=== PATIENT | female | born 1980 | race Caucasian/White ===

== ENCOUNTER 2016-12-22 10:38 | Emergency (ER) | payer MEDICAID ==
[2016-12-22 10:49] VITALS: RESP 18
[2016-12-22] MEDS ORDERED: SODIUM CHLORIDE 0.9% 1,000 ML IV STA (11:02)
[2016-12-22] MEDS ORDERED: ONDANSETRON 4 MG/2 ML VIAL IVP STA (11:02)
[2016-12-22] MEDS ORDERED: RX INFO: IV CONTRAST WAS GIVEN 1 EACH MISC MISCELLANE PRN (11:02)
[2016-12-22 11:19] LABS: Basophils % (A) 0 %; CH 32.3; CHCM 33.2; Eosinophils # (A) 0.1 k/uL (0-0.7); Eosinophils % (A) 2 %; HCT 49.5 % (34.0-46.0); HDW 2.26; HGB 15.5 gm/dL (11.4-16.0); Luc # (Auto) 0.08; Luc % (Auto) 1; Lymphocytes # (A) 1.3 k/uL (1.0-4.8); Lymphocytes % (A) 18 %; MCH 30.7 pg (25.0-35.0); MCHC 31.4 g/dL (31.0-37.0); MCV 97.9 fL (80.0-100.0); Mean Platelet Volume 9.3; Monocytes # (A) 0.3 k/uL (0-1.0); Monocytes % (A) 5 %; Neutrophils # (A) 5.7 k/uL (1.3-7.7); Neutrophils % (A) 75 %; RBC 5.05 m/uL (3.80-5.40); RDW 13.8 % (11.5-15.5); WBC 7.6 k/uL (3.8-10.6); WBC (Perox) 7.45
--- NOTE | 2016-12-22 11:21 | ED ---
General Adult HPI - General Chief complaint: Abdominal Pain Stated complaint: Abd Pain Time Seen by Provider: 12/22/16 10:50 Source: patient, RN notes reviewed Mode of arrival: ambulatory Limitations: no limitations - History of Present Illness Initial comments: 36-year-old female presents to the emergency department with a chief complaint of right lower quadrant abdominal pain. Patient states that she should a little bit of pain and today the pain was worse. with nausea without vomiting. No fever or chills. She states she just continues to be this constant type pain so she was concerned. She does admit to history of as well as ovarian cysts. Denies any other surgeries on the abdomen. Patient was concerned due to her continued discomfort so she thought that she should be evaluated. Patient denies any recent fever, chills, shortness of breath, chest pain, back pain, vomiting, numbness or tingling, dysuria or hematuria, constipation or diarrhea, headaches or visual changes, or any other current symptoms. - Related Data Home Medications Medication Instructions Recorded Confirmed Mirena 1 implant VAGINAL [id number] 12/22/16 12/22/16 Allergies Allergy/AdvReac Type Severity Reaction Status Date / Time No Known Allergies Allergy Verified 12/22/16 11:06 Review of Systems ROS Statement: Those systems with pertinent positive or pertinent negative responses have been documented in the HPI. ROS Other: All systems not noted in ROS Statement are negative. Past Medical History Past Medical History: No Reported History History of Any Multi-Drug Resistant Organisms: None Reported Past Surgical History: Section Past Psychological History: No Psychological Hx Reported Smoking Status: Never smoker Past Alcohol Use History: Occasional Past Drug Use History: None Reported General Exam - General Exam Comments Initial Comments: General: The patient is awake and alert, in no distress, and does not appear acutely ill. Eye: Pupils are equal, round and reactive to light, extra-ocular movements are intact; there is normal conjunctiva bilaterally. No signs of icterus. Ears, nose, mouth and throat: There are moist mucous membranes and no oral lesions. Neck: The neck is supple, there is no tenderness. Cardiovascular: There is a regular rate and rhythm. No murmur, rub or gallop is appreciated. Respiratory: Lungs are clear to auscultation, respirations are non-labored, breath sounds are equal. No wheezes, stridor, rales, or rhonchi. Gastrointestinal: Soft, non-distended, minimal right lower quadrant tenderness of the abdomen without masses or organomegaly noted. There is no rebound or guarding present. No CVA tenderness. Bowel sounds are unremarkable. Back: There is no tenderness to palpation in the midline. There is no obvious deformity. No rashes noted. Musculoskeletal: Normal ROM, no tenderness, There is no pedal edema. There is no calf tenderness or swelling. Sensation intact. Pulses equal bilaterally 2+. Neurological: CN II-XII intact, There are no obvious motor or sensory deficits. Coordination appears grossly intact. Speech is normal. Skin: Skin is warm and dry and no rashes or lesions are noted. Psychiatric: Cooperative, appropriate mood & affect, normal judgment. Limitations: no limitations Course Vital Signs 12/22/16 12/22/16 10:47 12:10 Temperature 98.8 F 97.6 F Pulse Rate 97 90 Respiratory 18 18 Rate Blood Pressure 143/83 114/59 O2 Sat by Pulse 97 99 Oximetry Medical Decision Making - Medical Decision Making 36-year-old female presents to the emergency department with a chief complaint of right lower quadrant abdominal pain. At this time patient's CAT scan has been reviewed. We did discuss the results thoroughly. We discussed that she needs to follow-up with the urologist for this. We did discuss that she needs to look in due to the continued results. We discussed that she does have ovarian cyst as well as a discussed return parameters all questions. She stated she understood and she is in agreement plan. She'll be discharged home. - Lab Data Result diagrams: 12/22/16 11:00 12/22/16 11:00 Lab Results 12/22/16 12/22/16 12/22/16 Range/Units 11:00 11:00 11:00 WBC 7.6 (3.8-10.6) k/uL RBC 5.05 (3.80-5.40) m/uL Hgb 15.5 (11.4-16.0) gm/dL Hct 49.5 H (34.0-46.0) % MCV 97.9 (80.0-100.0) fL MCH 30.7 (25.0-35.0) pg MCHC 31.4 (31.0-37.0) g/dL RDW 13.8 (11.5-15.5) % Plt Count 189 (150-450) k/uL Neutrophils % 75 % Lymphocytes % 18 % Monocytes % 5 % Eosinophils % 2 % Basophils % 0 % Neutrophils # 5.7 (1.3-7.7) k/uL Lymphocytes # 1.3 (1.0-4.8) k/uL Monocytes # 0.3 (0-1.0) k/uL Eosinophils # 0.1 (0-0.7) k/uL Basophils # 0.0 (0-0.2) k/uL Sodium 142 (137-145) mmol/L Potassium 3.9 (3.5-5.1) mmol/L Chloride 107 (98-107) mmol/L Carbon Dioxide 24 (22-30) mmol/L Anion Gap 11 mmol/L BUN 14 (7-17) mg/dL Creatinine 0.80 (0.52-1.04) mg/dL Est GFR (MDRD) Af Amer >60 (>60 ml/min/1.73 sqM) Est GFR (MDRD) Non-Af >60 (>60 ml/min/1.73 sqM) Glucose 91 (74-99) mg/dL Calcium 9.5 (8.4-10.2) mg/dL Total Bilirubin 0.6 (0.2-1.3) mg/dL AST 19 (14-36) U/L ALT 29 (9-52) U/L Alkaline Phosphatase 50 (38-126) U/L Total Protein 7.9 (6.3-8.2) g/dL Albumin 4.7 (3.5-5.0) g/dL Amylase 51 (30-110) U/L Lipase 114 (23-300) U/L Urine Color Urine Appearance (Clear) Urine pH (5.0-8.0) Ur Specific [facility] (1.001-1.035) Urine Protein (Negative) Urine Glucose (UA) (Negative) Urine Ketones (Negative) Urine Blood (Negative) Urine Nitrite (Negative) Urine Bilirubin (Negative) Urine Urobilinogen (<2.0) mg/dL Ur Leukocyte Esterase (Negative) Urine HCG, Qual Not Detected (Not Detectd) 12/22/16 Range/Units 11:00 WBC (3.8-10.6) k/uL RBC (3.80-5.40) m/uL Hgb (11.4-16.0) gm/dL Hct (34.0-46.0) % MCV (80.0-100.0) fL MCH (25.0-35.0) pg MCHC (31.0-37.0) g/dL RDW (11.5-15.5) % Plt Count (150-450) k/uL Neutrophils % % Lymphocytes % % Monocytes % % Eosinophils % % Basophils % % Neutrophils # (1.3-7.7) k/uL Lymphocytes # (1.0-4.8) k/uL Monocytes # (0-1.0) k/uL Eosinophils # (0-0.7) k/uL Basophils # (0-0.2) k/uL Sodium (137-145) mmol/L Potassium (3.5-5.1) mmol/L Chloride (98-107) mmol/L Carbon Dioxide (22-30) mmol/L Anion Gap mmol/L BUN (7-17) mg/dL Creatinine (0.52-1.04) mg/dL Est GFR (MDRD) Af Amer (>60 ml/min/1.73 sqM) Est GFR (MDRD) Non-Af (>60 ml/min/1.73 sqM) Glucose (74-99) mg/dL Calcium (8.4-10.2) mg/dL Total Bilirubin (0.2-1.3) mg/dL AST (14-36) U/L ALT (9-52) U/L Alkaline Phosphatase (38-126) U/L Total Protein (6.3-8.2) g/dL Albumin (3.5-5.0) g/dL Amylase (30-110) U/L Lipase (23-300) U/L Urine Color Light Yellow Urine Appearance Clear (Clear) Urine pH 6.5 (5.0-8.0) Ur Specific [facility] 1.007 (1.001-1.035) Urine Protein Negative (Negative) Urine Glucose (UA) Negative (Negative) Urine Ketones Negative (Negative) Urine Blood Negative (Negative) Urine Nitrite Negative (Negative) Urine Bilirubin Negative (Negative) Urine Urobilinogen <2.0 (<2.0) mg/dL Ur Leukocyte Esterase Negative (Negative) Urine HCG, Qual (Not Detectd) - Radiology Data Radiology results: report reviewed, image reviewed Disposition Clinical Impression: Ovarian cyst, Abdominal pain, Abnormal CT scan, kidney Disposition: HOME SELF-CARE Condition: Stable Instructions: Abdominal Pain (ED) Additional Instructions: Please use medication as discussed. Please follow up with family doctor if symptoms have not improved over the next two days. Please return to the emergency room if your symptoms increase or worsen or for any other concerns. Referrals: Milena Aragon DO [Primary Care Provider] - 1-2 days Delano Mireles MD [STAFF PHYSICIAN] - 1-2 days Time of Disposition: 12:37
[2016-12-22 11:22] LABS: Appearance,Urine Clear (Clear); Bilirubin,Urine Negative (Negative); Glucose,Urine (UA) Negative (Negative); Ketones,Urine Negative (Negative); Leukocyte Esterase,Urine Negative (Negative); Nitrite,Urine Negative (Negative); PH, Urine 6.5 (5.0-8.0); Protein,Urine Negative (Negative); Specific Gravity,Urine 1.007 (1.001-1.035); UA Billing (MACRO vs. MICRO) CHEM; Urobilinogen,Urine <2.0 mg/dL (<2.0)
[2016-12-22 11:27] LABS: ALT 29 U/L (9-52); AST 19 U/L (14-36); Alkaline Phosphatase 50 U/L (38-126); Amylase 51 U/L (30-110); Anion Gap 11 mmol/L; Blood Urea Nitrogen 14 mg/dL (7-17); Calcium 9.5 mg/dL (8.4-10.2); Carbon Dioxide 24 mmol/L (22-30); Chloride 107 mmol/L (98-107); Glucose 91 mg/dL (74-99); Non-African American GFR(MDRD) >60 (>60 ml/min/1.73 sqM); Potassium 3.9 mmol/L (3.5-5.1); Sodium 142 mmol/L (137-145); Total Bilirubin 0.6 mg/dL (0.2-1.3); Total Protein 7.9 g/dL (6.3-8.2)
--- NOTE | 2016-12-22 12:18 | CT ---
EXAMINATION TYPE: CT abdomen pelvis w con DATE OF EXAM: 12/22/2016 COMPARISON: NONE HISTORY: Patient complains of RLQ pain. CT DLP: 728.3 mGycm CONTRAST: CT scan of the abdomen and pelvis is performed without Oral Contrast and with IV Contrast, patient in jected with 100 mL of Omnipaque 300. FINDINGS: LUNG BASES-: No visible nodule. No infiltrate. LIVER/GB: No calcified gallstones. No space occupying hepatic lesion. Biliary tree is of normal ca liber. PANCREAS: No inflammation. No distinct mass. SPLEEN: No splenic enlargement. No lesion seen. ADRENALS: No nodule. No thickening. KIDNEYS/BLADDER: Diminutive right kidney relative to its left-sided counterpart with areas of parench ymal scarring. Right kidney measures 9 cm in length while the left kidney measures 13.7 cm. Approxima tely 5 nonobstructing calculi are seen within the right kidney. There is fullness of the right renal collecting system without obstructing calculus at this time. No renal masses. No left-sided nephrolit hiasis. Urinary bladder is unremarkable. BOWEL: Normal appendix. Normal bowel caliber. No inflammation. GENITAL ORGANS: IUD is in place. Bilateral renal cysts noted measuring 2.6 cm on the left and approx imately 2.9 cm on the right. No evidence for free fluid LYMPH NODES: No greater than 1cm abdominal or pelvic lymph nodes are appreciated. AORTA: No significant abnormality. OSSEOUS STRUCTURES: No significant abnormality is seen. OTHER: No significant additional abnormality is seen. IMPRESSION: 1. Diminutive right kidney with areas of parenchymal scarring. Nonobstructing nephrolithiasis. Fullne ss of the right renal collecting system without obstructing calculus. 2. Normal appendix. 3. Bilateral ovarian cysts.
[2016-12-22 12:49] VITALS: BP 135/75; PULSE 68; TEMP 98.5
== END 2016-12-22 12:49 | disposition home or self-care (01) ==
LOC: EC 10:38
DX: N83.202 Unspecified ovarian cyst, left side (principal); N83.201 Unspecified ovarian cyst, right side; R93.3 Abnormal findings on diagnostic imaging of other parts of digestive tract; Z97.5 Presence of (intrauterine) contraceptive device
CPT/HCPCS: 99284; 96374; 96361 ×2; 36415; 80053; 82150; 83690; 85025; 81003; 81025; 74177; J2405; Q9967

== ENCOUNTER → 2023-01-15 | Outpatient (CLI) | payer MEDICAID ==
[2023-01-15 10:52] LABS: Basophils # (A) 0.03 X 10*3/uL (0.00-0.10); Basophils % (A) 0.5 %; Eosinophils # (A) 0.06 X 10*3/uL (0.04-0.35); HCT 45.4 % (37.2-46.3); HGB 14.7 g/dL (12.0-15.0); Lymphocytes # (A) 1.21 X 10*3/uL (0.90-5.00); Lymphocytes % (A) 21.2 %; MCH 29.9 pg (27.0-32.0); MCHC 32.4 g/dL (32.0-37.0); MCV 92.5 FL (80.0-97.0); Mean Platelet Volume 11.1 FL (9.5-12.2); Monocytes # (A) 0.46 X 10*3/uL (0.20-1.00); NRBC Per 100 WBC 0 X 10*3/uL (0.00-0.01); Neutrophils # (A) 3.94 X 10*3/uL (1.80-7.70); Platelet Count 198 X 10*3/uL (140-440); RBC 4.91 X 10*6/uL (4.10-5.20); RDW 13.2 % (11.5-14.5); WBC 5.72 X 10*3/uL (4.50-10.00)
[2023-01-15 16:20] LABS: ALT 17 U/L (8-44); AST 12 U/L (13-35); Albumin 4.3 g/dL (3.8-4.9); Albumin/Globulin Ratio 1.95 Ratio (1.60-3.17); Alkaline Phosphatase 49 U/L (41-126); Blood Urea Nitrogen 10.4 mg/dL (9.0-27.0); Calcium 9.6 mg/dL (8.7-10.3); Chloride 108 mmol/L (96-109); Chol/HDL Ratio 2.94 Ratio; Globulin 2.2 g/dL (1.6-3.3); Glucose 101 mg/dL (70-110); LDL Cholesterol,Calculated 107.3 mg/dL (0.0-131.0); Potassium 4.9 mmol/L (3.5-5.5); Sodium 143 mmol/L (135-145); Total Bilirubin 0.4 mg/dL (0.3-1.2); Total Protein 6.5 g/dL (6.2-8.2)
[2023-01-15 17:06] LABS: Gliadin AB IgA, Deaminated Negative (Negative); Gliadin AB IgA, Unit 9.2 U/mL; Gliadin AB IgG, Deaminated Negative (Negative); Gliadin AB IgG, Unit <0.4 U/mL
== END | disposition home or self-care (01) ==
LOC: LABWHC1 06:57
PROVIDERS: ATTEND Family Medicine
DX: Z00.00 Encounter for general adult medical examination without abnormal findings (principal); Z13.1 Encounter for screening for diabetes mellitus; K58.9 Irritable bowel syndrome, unspecified
CPT/HCPCS: 36415; 80053; 80061; 82306; 83036; 83516; 84443; 85025

== ENCOUNTER 2023-01-20 07:06 | Observation (INO) | payer MEDICAID ==
[2023-01-20 07:30] VITALS: RESP 18
--- NOTE | 2023-01-20 07:56 | ED ---
General Adult HPI - General Chief complaint: Chest Pain Stated complaint: Afib Time Seen by Provider: 01/20/23 07:09 Source: EMS Mode of arrival: EMS Limitations: no limitations - History of Present Illness Initial comments: Dictation was produced using [employer] dictation software. please excuse any grammatical, word or spelling errors. Chief Complaint: 42-year-old female presents to the emergency department for palpitations History of Present Illness: 42-year-old female presents emergency. Palpitations. She states that she has extensive family history of A. fib. She denies any medical Prilosec does not take any supplements or stimulants. Patient is admitted. Patient states that her heart felt like it is racing last night for approximate 1 hour. She got to work and felt like her heart rate was a little fast. Denies any shortness of breath. No chest pain no hemoptysis no leg pain or swelling. No history of blood clots. The ROS documented in this emergency department record has been reviewed and confirmed by me. Those systems with pertinent positive or negative responses have been documented in the HPI. All other systems are other negative and/or noncontributory. - Related Data Home Medications Medication Instructions Recorded Confirmed Mirena 1 implant VAGINAL [id number] 12/22/16 12/22/16 Allergies Allergy/AdvReac Type Severity Reaction Status Date / Time No Known Allergies Allergy Verified 01/20/23 07:29 Review of Systems ROS Statement: Those systems with pertinent positive or pertinent negative responses have been documented in the HPI. ROS Other: All systems not noted in ROS Statement are negative. Past Medical History Past Medical History: No Reported History History of Any Multi-Drug Resistant Organisms: None Reported Past Surgical History: Section Past Psychological History: No Psychological Hx Reported Smoking Status: Never smoker Past Alcohol Use History: Occasional Past Drug Use History: None Reported General Exam - General Exam Comments Initial Comments: PHYSICAL EXAM: General Impression: Alert and oriented x3, not in acute distress HEENT: Normocephalic atraumatic, extra-ocular movements intact, pupils equal and reactive to light bilaterally, mucous membranes moist. Cardiovascular: Heart regular rate and rhythm Chest: Able to complete full sentences, no retractions, no tachypnea Abdomen: abdomen soft, non-tender, non-distended, no organomegaly Musculoskeletal: Pulses present and equal in all extremities, no peripheral edema Motor: no focal deficits noted Neurological: CN II-XII grossly intact, no focal motor or sensory deficits noted Skin: Intact with no visualized rashes Psych: Normal affect and mood Limitations: no limitations Course Vital Signs 01/20/23 01/20/23 07:25 10:12 Temperature 98.2 F Pulse Rate 117 H 103 H Respiratory 18 18 Rate Blood Pressure 155/85 150/78 O2 Sat by Pulse 97 99 Oximetry Medical Decision Making - Medical Decision Making Was pt. sent in by a medical professional or institution (, PA, MARBLE HELPER, urgent care, hospital, or retirement...) When possible be specific @ -No Did you speak to anyone other than the patient for history (EMS, parent, family, police, friend...)? What history was obtained from this source @ -No Did you review nursing and triage notes (agree or disagree)? Why? @ -I reviewed and agree with nursing and triage notes Were old charts reviewed (outside hosp., previous admission, EMS record, old EKG, old radiological studies, urgent care reports/EKG's, retirement records)? Report findings @ -No old charts were reviewed Differential Diagnosis (chest pain, altered mental status, abdominal pain women, abdominal pain men, vaginal bleeding, musculoskeletal, weakness, fever, dyspnea, syncope, headache, dizziness, GI bleed, back pain, seizure, CVA, palpatations, mental health)? @ - Differential Palpitations: Ventricular arrhythmias, atrial arrhythmias, myocardial infarction, anemia, thyrotoxicosis, electrolyte imbalance, hypokalemia, pulmonary embolism, pulmonary disease, drugs, alcohol, anxiety, stress.... This is not meant to be an all-inclusive list. EKG interpreted by me (3pts min.). @ -IMy EKG interpretation: Ventricular rate 99, sinus rhythm,. 122, QRS 86, QTC 400. No IL prolongation, no QTC prolongation. vague ST depressions diffusely no ST elevations. Overall this EKG is nonspecific X-rays interpreted by me (1pt min.). @ -Chest x-ray is nonacute. CT interpreted by me (1pt min.). @ -None done U/S interpreted by me (1pt. min.). @ -None done What testing was considered but not performed or refused? (CT, X-rays, U/S, labs)? Why? @ -None What meds were considered but not given or refused? Why? @ -None Did you discuss the management of the patient with other professionals (professionals i.e. DrChuckie, PA, MARBLE HELPER, lab, RT, psych nurse, social worker health services, wrapper sheeter, teacher, protective officer, case monitor)? Give summary @ -Spoke with pathology transcriptionist, Dr. Palomo who is evaluating the patient recommended echocardiogram and cardiology workup. Case also discussed with hospitalist nurse practitioner for admission Was smoking cessation discussed for >3mins.? @ -No Was critical care preformed (if so, how long)? @ -No Were there social determinants of health that impacted care today? How? (Homelessness, low income, unemployed, alcoholism, drug addiction, transportation, low edu. Level, literacy, decrease access to med. care, fci, rehab)? @ -No Was there de-escalation of care discussed even if they declined (Discuss DNR or withdrawal of care, Hospice)? DNR status @ -No What co-morbidities impacted this encounter? (DM, HTN, Smoking, COPD, CAD, Cancer, CVA, ARF, Chemo, Hep., AIDS, mental health diagnosis, sleep apnea, morbid obesity)? @ -None Was patient admitted / discharged? Hospital course, mention meds given and route, prescriptions, significant lab abnormalities, going to OR and other pertinent info. @ -42 y Old female presents chief complaint of palpitations. Vital signs are stable. She is mildly tachycardic. Laboratory evaluation obtained. CBC milligrams unremarkable. Initial troponin is negative. TSH is normal. Chest x-ray nonacute. Case discussed cardiology who recommended cardiology workup. Patient admitted observation. Undiagnosed new problem with uncertain prognosis? @ -No Drug Therapy requiring intensive monitoring for toxicity (Heparin, Nitro, Insulin, Cardizem)? @ -No Were any procedures done? @ -No Diagnosis/symptom? Acute, or Chronic, or Acute on Chronic? Uncomplicated (without systemic symptoms) or Complicated (systemic symptoms)? @ -Palpitations Side effects of treatment? @ -No Exacerbation, Progression, or Severe Exacerbation? @ -No Poses a threat to life or bodily function? How? (Chest pain, [place], [place], pneumonia, PE, COPD, DKA, ARF, appy, cholecystitis, CVA, Diverticulitis, Homicidal, Suicidal, threat to staff... and all critical care pts) @ -yes - Lab Data Result diagrams: 01/20/23 07:53 01/20/23 07:53 Lab Results 01/20/23 01/20/23 01/20/23 Range/Units 07:53 07:53 07:53 WBC 7.2 (3.8-10.6) k/uL RBC 4.99 (3.80-5.40) m/uL Hgb 15.4 (11.4-16.0) gm/dL Hct 45.6 (34.0-46.0) % MCV 91.4 (80.0-100.0) fL MCH 30.8 (25.0-35.0) pg MCHC 33.7 (31.0-37.0) g/dL RDW 13.2 (11.5-15.5) % Plt Count 180 (150-450) k/uL MPV 9.2 Neutrophils % 72 % Lymphocytes % 18 % Monocytes % 7 % Eosinophils % 1 % Basophils % 1 % Neutrophils # 5.2 (1.3-7.7) k/uL Lymphocytes # 1.3 (1.0-4.8) k/uL Monocytes # 0.5 (0-1.0) k/uL Eosinophils # 0.1 (0-0.7) k/uL Basophils # 0.0 (0-0.2) k/uL Sodium 140 (137-145) mmol/L Potassium 4.4 (3.5-5.1) mmol/L Chloride 107 (98-107) mmol/L Carbon Dioxide 23 (22-30) mmol/L Anion Gap 10 mmol/L BUN 16 (7-17) mg/dL Creatinine 0.78 (0.52-1.04) mg/dL Est GFR (CKD-EPI)AfAm >90 (>60 ml/min/1.73 sqM) Est GFR (CKD-EPI)NonAf >90 (>60 ml/min/1.73 sqM) Glucose 112 H (74-99) mg/dL Calcium 9.4 (8.4-10.2) mg/dL Magnesium 2.0 (1.6-2.3) mg/dL Troponin I <0.012 (0.000-0.034) ng/mL NT-Pro-B Natriuret Pep 88 pg/mL TSH 0.646 (0.465-4.680) mIU/L Disposition Clinical Impression: Palpitations Disposition: ADMITTED IP TO THIS HOSP Condition: Fair Referrals: Herbert Delgado MD [Primary Care Provider] - 1-2 days Decision Time: 11:11
[2023-01-20 08:02] LABS: Basophils % (A) 1 %; Eosinophils # (A) 0.1 k/uL (0-0.7); Eosinophils % (A) 1 %; HCT 45.6 % (34.0-46.0); HGB 15.4 gm/dL (11.4-16.0); Lymphocytes # (A) 1.3 k/uL (1.0-4.8); Lymphocytes % (A) 18 %; MCH 30.8 pg (25.0-35.0); MCHC 33.7 g/dL (31.0-37.0); MCV 91.4 fL (80.0-100.0); Mean Platelet Volume 9.2; Monocytes # (A) 0.5 k/uL (0-1.0); Monocytes % (A) 7 %; Neutrophils # (A) 5.2 k/uL (1.3-7.7); Neutrophils % (A) 72 %; Platelet Count 180 k/uL (150-450); RBC 4.99 m/uL (3.80-5.40); RDW 13.2 % (11.5-15.5); WBC 7.2 k/uL (3.8-10.6)
[2023-01-20 08:12] LABS: African American GFR (CKD) >90 (>60 ml/min/1.73 sqM); Anion Gap 10 mmol/L; Blood Urea Nitrogen 16 mg/dL (7-17); Calcium 9.4 mg/dL (8.4-10.2); Carbon Dioxide 23 mmol/L (22-30); Chloride 107 mmol/L (98-107); Glucose 112 mg/dL (74-99); Non-African American GFR(CKD) >90 (>60 ml/min/1.73 sqM); Potassium 4.4 mmol/L (3.5-5.1); Sodium 140 mmol/L (137-145)
[2023-01-20 08:21] LABS: NT-Pro-B-Type Natriuretic Pept 88 pg/mL
--- NOTE | 2023-01-20 08:21 | XR ---
EXAMINATION TYPE: XR chest 2V DATE OF EXAM: 01/20/2023 COMPARISON: None HISTORY: 42-year-old female palpitations TECHNIQUE: PA and lateral views FINDINGS: The cardiomediastinal silhouette, aorta, and pulmonary vasculature are within normal limits. Lungs an d pleural spaces are clear. Dextroconvex curvature lower thoracic spine. IMPRESSION: No acute cardiopulmonary process.
[2023-01-20] MEDS ORDERED: NALOXONE 0.4 MG/ML 1 ML VIAL IV PRN (11:07)
[2023-01-20 11:53] LABS: T4, Free (Free Thyroxine) 1.32 ng/dL (0.78-2.19)
--- NOTE | 2023-01-20 12:31 | CA ---
Stress Echo Report Sigrid Mercado Age: 42 Gender: F : 1980 Exam Date: 01/20/2023 11:41 Exam Location: [place] [facility] Ht (in): 70 Wt (lb): 205 Ordering Physician: Paris Mckenzie Referring Physician: [id number] Urban Sociologist: Jamila Stauffer [facility] Technologist Procedure CPT: Indication: CP ICD-9 Codes: Rhythm: Patient History: MELISA, PALP, FAMILY HX, Cardiac Medications: SEE CHART Medications in past 24 hours: Contrast: N/A Stress Results Protocol: Eren Total dose(mL): Exercise Duration (min:sec): 8:[address] Depression (mm): Angina Score: Ding Score: METS: 9.7 Resting HR: 112 Resting BP: 127 / 88 Peak HR: 176 Peak BP: 182 / 62 Max Predicted HR: 176 100 % Max Predicted HR Target HR: 150 Double Product: 31382 Stress Summary: BP Response: Reason for Termination: Reached target heart rate or work-load, Maximal effort/unable to continue Cardiac Symptoms: ASYMPTOMATIC ECG Analysis Resting ECG: Normal sinus rhythm normal axis normal intervals Stress ECG: Patient exercised on Eren protocol for 8 and half minutes achieving 85% of predicted maximal heart rate without chest pain. The peak exercise it was [address] segment depression noted in inferolateral leads Arrhythmia: Echo Analysis Resting Echo: Normal left ventricular size wall motion systolic function Peak Echo Analysis: No exercise induced wall motion abnormalities noted however this a technically suboptimal study as such 2 chamber view was not optimally recorded MEASUREMENTS (Male/Female) Normal Values CONCLUSIONS Although average exercise tolerance Abnormal stress test by EKG criteria No obvious exercise induced wall motion abnormalities Technically suboptimal study Dr. Hayden Robertson MD (Electronically Signed) Final Date: 20 January 2023 12:30
--- NOTE | 2023-01-20 12:39 | CA ---
Transthoracic Echo Report Name: Sigrid Mercado Age: 42 Gender: F : 1980 Exam Date: 01/20/2023 12:08 Exam Location: [place] [facility] Ht (in): 70 Wt (lb): 205 Ordering Physician: Eddie oPllard MD ([id number]) Attending/Referring Phys: Vpk Teacher Jamila Stauffer RDCS Procedure CPT: Indications: increased HR Cardiac Hx: Technical Quality: Fair Contrast 1: Total Dose (mL): Contrast 2: Total Dose (mL): MEASUREMENTS (Male / Female) Normal Values 2D ECHO LV Diastolic Diameter PLAX 4.2 cm 4.2 - 5.9 / 3.9 - 5.3 cm LV Systolic Diameter PLAX 2.9 cm IVS Diastolic Thickness 1.3 cm 0.6 - 1.0 / 0.6 - 0.9 cm LVPW Diastolic Thickness 1.1 cm 0.6 - 1.0 / 0.6 - 0.9 cm LV Relative Wall Thickness 0.6 RV Internal Dim ED PLAX 2.9 cm LA Volume 24.8 cm??? 18 - 58 / 22 - 52 cm??? LA Volume Index 11.5 cm???/m??? 16 - 28 cm???/m??? M-MODE Aortic Root Diameter MM 2.9 cm LA Systolic Diameter MM 3.0 cm LA Ao Ratio MM 1.1 AV Cusp Separation MM 1.9 cm DOPPLER AV Peak Velocity 130.4 cm/s AV Peak Gradient 6.8 mmHg AV Mean Velocity 76.8 cm/s AV Mean Gradient 3.0 mmHg AV Velocity Time Integral 19.3 cm LVOT Peak Velocity 109.4 cm/s LVOT Peak Gradient 4.8 mmHg LVOT Velocity Time Integral 20.9 cm MV Area PHT 3.6 cm??? Mitral E Point Velocity 62.3 cm/s Mitral A Point Velocity 95.6 cm/s Mitral E to A Ratio 0.7 MV Deceleration Time 210.2 ms MV E' Velocity 12.8 cm/s Mitral E to MV E' Ratio 4.9 TR Peak Velocity 218.9 cm/s TR Peak Gradient 19.2 mmHg Right Ventricular Systolic Press 24.2 mmHg FINDINGS Left Ventricle Mildly increased left ventricular wall thickness. Left ventricular cavity size normal. Normal left ventricular systolic function with no obvious regional wall motion abnormalities. Left ventricular ejection fraction is estimated at 55-60 %. Right Ventricle Normal right ventricular size and function. Right ventricular systolic pressure within normal limits. Right Atrium Normal right atrial size. Left Atrium Normal left atrial size. Interatrial septal aneurysm. Mitral Valve Structurally normal mitral valve. No mitral stenosis, regurgitation or prolapse. Aortic Valve Trileaflet aortic valve. No aortic valve stenosis or regurgitation. Tricuspid Valve Structurally normal tricuspid valve. Mild tricuspid regurgitation. Pulmonic Valve Structurally normal pulmonic valve. Pericardium No pericardial effusion. Aorta Normal size aortic root and proximal ascending aorta. CONCLUSIONS Normal LV function Previewed by: Dr. Hayden Robertson MD (Electronically Signed) Final Date: 20 January 2023 12:39
[2023-01-20 12:45] VITALS: BP 127/87; PULSE 99; TEMP 98
--- NOTE | 2023-01-20 13:35 | P.CRDCN ---
History of Present Illness Consult date: 01/20/23 Chief complaint: Palpitation History of present illness: The patient is a pleasant 42-year-old female patient was no significant cardiac or medical history presented to the emergency department complaining of palpitation. She was in her usual state of health until yesterday when she woke up from sleep complaining of palpitation and she checked her apical watch and she was noticed that her heart rate has been around 150 beats per minute. No dizziness or lightheadedness and no presyncope or syncope and no symptoms of chest pain or chest discomfort or shortness of breath. Never been diagnosed was any cardiac arrhythmia before. She underwent further workup including troponin came in to be unremarkable and EKG showing sinus mechanism was nonspecific changes. The rest of the blood work overall came in to be unremarkable. Further investigation including stress echocardiogram came in to be unremarkable and echo also came in to be unremarkable. The patient is going to be discharged home on event monitor and she will be seen in the office as an outpatient. Please note also that her TSH and free T4 came in to be unremarkable. The examination is remarkable for regular rhythm with a clear breathing sounds bilaterally and no lower extremity is edema noted. Assessment Tachycardia. Rule out SVT versus atrial tachycardia versus inappropriate sinus tachycardia Plan Acute coronary event was ruled out Severe CAD was ruled out Obtain an event monitor Follow-up with the patient Past Medical History Past Medical History: No Reported History History of Any Multi-Drug Resistant Organisms: None Reported Past Surgical History: Section Past Psychological History: No Psychological Hx Reported Smoking Status: Never smoker Past Alcohol Use History: Occasional Past Drug Use History: None Reported Medications and Allergies Home Medications Medication Instructions Recorded Confirmed Type Mirena 1 implant VAGINAL [id number] 12/22/16 01/20/23 History polyethylene glycoL 3350 [Miralax] 8.5 gm PO DAILY PRN 01/20/23 01/20/23 History Allergies Allergy/AdvReac Type Severity Reaction Status Date / Time No Known Allergies Allergy Verified 01/20/23 12:51 Physical Exam Vitals: Vital Signs Temp Pulse Pulse Resp BP BP Pulse Ox 01/20/23 12:40 98 F 99 18 127/87 97 01/20/23 11:26 101 H 18 131/95 98 01/20/23 10:12 103 H 18 150/78 99 01/20/23 07:25 98.2 F 117 H 18 155/85 97 Intake and Output 01/19/23 01/20/23 01/20/23 22:59 06:59 14:59 Other: Weight 92.986 kg Results 01/20/23 07:53 01/20/23 07:53 Cardiac Enzymes 01/20/23 01/20/23 Range/Units 07:53 10:31 Troponin I <0.012 <0.012 (0.000-0.034) ng/mL CBC 01/20/23 Range/Units 07:53 WBC 7.2 (3.8-10.6) k/uL RBC 4.99 (3.80-5.40) m/uL Hgb 15.4 (11.4-16.0) gm/dL Hct 45.6 (34.0-46.0) % Plt Count 180 (150-450) k/uL Comprehensive Metabolic Panel 01/20/23 Range/Units 07:53 Sodium 140 (137-145) mmol/L Potassium 4.4 (3.5-5.1) mmol/L Chloride 107 (98-107) mmol/L Carbon Dioxide 23 (22-30) mmol/L BUN 16 (7-17) mg/dL Creatinine 0.78 (0.52-1.04) mg/dL Glucose 112 H (74-99) mg/dL Calcium 9.4 (8.4-10.2) mg/dL Current Medications Generic Name Dose Route Start Last Admin Trade Name Freq PRN Reason Stop Dose Admin Naloxone HCl 0.2 mg 01/20/23 11:07 Naloxone 0.4 Mg/Ml 1 Ml Vial IV Q2M PRN Opioid Reversal Intake and Output 01/19/23 01/20/23 01/20/23 22:59 06:59 14:59 Other: Weight 92.986 kg Patient Weight 01/21/23 06:59 Weight 92.986 kg 01/20/23 07:53 01/20/23 07:53
--- NOTE | 2023-01-20 13:45 | P.HPIM ---
History of Present Illness H&P Date: 01/20/23 History of Presenting Illness: Patient is a very pleasant 42-year-old female with no reported past medical history. She presented to the emergency department with a chief complaint of palpitations. Patient reports she has had a couple notifications from her watch over the past 48 hours notifying her of a significantly fast heart rate. She reports 2 nights ago she was awoken from sleep with her watch alarming her that her weight was greater than 150. Patient denies having any cardiac history, but does report family history of atrial fibrillation. She denies excessive ca ffeine intake, any recent illnesses or exposure to known ill contacts, fevers, chills, headache, lightheadedness, chest pain, palpitations, shortness of breath, exertional dyspnea, or experiencing any numbness/tingling/weakness/swelling in her extremities. She underwent full evaluation in the emergency department. CBC unremarkable. BMP showing hyperglycemia with glucose of 112 otherwise normal findings. Magnesium normal findings at 2.0. Troponin negative at less than 0.012. ProBNP 88. TSH normal findings is 0.646 with free T4 1.32, and free T3 of 3.4. EKG completed showing normal sinus rhythm and 99 bpm with no significant T-wave or ST abnormalities showing no signs of acute ischemia. Chest x-ray negative for acute cardiopulmonary process. Patient admitted under our services with consultation to cardiology. Review of systems: Pertinent positives and negatives as discussed in HPI, a complete review of systems was performed and all other systems are negative. Physical exam: Vital signs reviewed and stable. General: Nontoxic, no distress and appears stated age. Derm: Skin warm and dry, normal coloration for ethnicity. Head: Atraumatic, normocephalic and symmetric. Eyes: EOMs intact, no lid lag, and anicteric sclera Mouth: no lip lesions, mucus membranes moist Cardiovascular: regular rate and rhythm with normal S1S2, no murmur, positive posterior tibial pulses bilaterally, and cap refill < 2 seconds. Lungs: Respirations even, regular, and unlabored on room air. Lungs CTA bilaterally, no rhonchi, no rales, no wheezing, and no accessory muscle usage. Abdominal: soft, nontender to palpation, no guarding, no appreciable organomegaly Ext: ROM intact. No gross muscle atrophy, no edema, no contractures Neuro: Speech clear, face symmetrical and CN II-XII grossly intact with no noted focal neuro deficits Psych: Alert and oriented to person, place, time, and situation. Appropriate and pleasant affect. Assessment and Plan of Care: Palpitations, rule out SVT versus atrial tachycardia versus atrial fibrillation versus other underlying arrhythmias. -Cardiology consult, appreciate further recommendations -Telemetry monitoring -Trend troponins -Cardiac diet -Obtain d-dimer -Echocardiogram Date and imaging reviewed: -Labs completed and reviewed. CBC unremarkable. BMP showing hyperglycemia with glucose of 112 otherwise normal findings. Magnesium normal findings at 2.0. Troponin negative at less than 0.012. ProBNP 88. TSH normal findings is 0.646 with free T4 1.32, and free T3 of 3.4. -EKG completed showing normal sinus rhythm and 99 bpm with no significant T-wave or ST abnormalities showing no signs of acute ischemia. -Chest x-ray negative for acute cardiopulmonary process. -Vital signs reviewed. Blood pressure 155/85, heart rate 117, respiratory rate 18, temp 98.2F, SpO2 97% on room air. The patient is admitted with an anticipated less than 2 midnight stay for evaluation of palpitations CODE STATUS: Full code Anticipated discharge date: Likely within the next [address]: Home Patient was seen independently by Nurse Practitioner. This document was prepared using [employer] dictation software. Please allow for errors in systems designer while rare they do occur. Jose Miguel Jacobs NP rendered care for this patient independently, reviewed the findi ngs and plan as documented in the note above. I did not physically speak with or examine the patient on this date. Past Medical History Past Medical History: No Reported History History of Any Multi-Drug Resistant Organisms: None Reported Past Surgical History: Section Past Psychological History: No Psychological Hx Reported Smoking Status: Never smoker Past Alcohol Use History: Occasional Past Drug Use History: None Reported Medications and Allergies Home Medications Medication Instructions Recorded Confirmed Type Mirena 1 implant VAGINAL [id number] 12/22/16 01/20/23 History ALPRAZolam [Xanax] 0.5 mg PO TID PRN #12 tablet 01/20/23 Rx polyethylene glycoL 3350 [Miralax] 8.5 gm PO DAILY PRN 01/20/23 01/20/23 History Allergies Allergy/AdvReac Type Severity Reaction Status Date / Time No Known Allergies Allergy Verified 01/20/23 12:51 Physical Exam Vitals: Vital Signs Temp Pulse Resp BP Pulse Ox 01/20/23 10:12 103 H 18 150/78 99 01/20/23 07:25 98.2 F 117 H 18 155/85 97 Intake and Output 01/19/23 01/20/23 01/20/23 22:59 06:59 14:59 Other: Weight 92.986 kg Results CBC & Chem 7: 01/20/23 07:53 01/20/23 07:53 Labs: Abnormal Lab Results - Last 24 Hours (Table) 01/20/23 Range/Units 07:53 Glucose 112 H (74-99) mg/dL
--- NOTE | 2023-01-20 13:45 | P.DS ---
Providers Date of admission: 01/20/23 11:07 Expected date of discharge: 01/20/23 Attending physician: Willie Larose MD Consults: 01/20/23 09:48 Consult Physician Stat Consulting Provider: Eddie Pollard Consult Reason/Comments: palpitations Do you want consulting provider notified?: Already Contacted Primary care physician: Herbert Delgado MD Hospital Course: Discharge Diagnosis: Palpitations, cardiac workup negative. Patient being discharged to go directly across the [facility] for placement of event monitor. Anxiety, patient provided with prescription for Xanax 0.5 mg to take every 8 hours as needed for severe anxiety. Hospital Course: Patient is a very pleasant 42-year-old female with no reported past medical history. She presented to the emergency department with a chief complaint of palpitations. Patient reports she has had a couple notifications from her watch over the past 48 hours notifying her of a significantly fast heart rate. She reports 2 nights ago she was awoken from sleep with her watch alarming her that her weight was greater than 150. Patient denies having any cardiac history, but does report family history of atrial fibrillation. She denies excessive caffeine intake, any recent illnesses or exposure to known ill contacts, fevers, chills, headache, lightheadedness, chest pain, palpitations, shortness of breath, exertional dyspnea, or experiencing any numbness/tingling/weakness/swelling in her extremities. She underwent full e valuation in the emergency department. CBC unremarkable. BMP showing hyperglycemia with glucose of 112 otherwise normal findings. Magnesium normal findings at 2.0. Troponin negative at less than 0.012. ProBNP 88. TSH normal findings is 0.646 with free T4 1.32, and free T3 of 3.4. EKG completed showing normal sinus rhythm and 99 bpm with no significant T-wave or ST abnormalities showing no signs of acute ischemia. Chest x-ray negative for acute cardiopulmonary process. Patient was admitted under our services with consultation to cardiology. Troponins trended all negative at less than 0.0122 draws. Order placed for a d-dimer secondary to patient having Mirena implant which does increase chances of blood clots. D-dimer resulting in was negative at 0.39. Cardiology evaluated. Echocardiogram was completed showing preserved EF of 55-60% with mild tricuspid regurgitation otherwise no reported structural or valvular abnormalities. Stress echocardiogram completed showing average exercise tolerance with abnormal stress test by EKG criteria and no obvious exercise-induced wall motion abnormalities. Cardiology clearing patient from cardiac perspective recommending patient be discharged directly to their office and have 2 week event monitor placed. Patient currently free from any complaints at this time. She stated palpitations waxed and waned and are currently absent. Patient remains free from any other cardiac complaints. Medically, patient is stable at this time. Patient being discharged and directed to go directly across the [facility] for placement of event monitor. Patient to follow-up with PCP in 1-2 days and with civil division deputy sheriff in 1 week. Patient seen and examined at bedside. Vital signs reviewed and stable. General: Nontoxic, no distress and appears stated age. Derm: Skin warm and dry, normal coloration for ethnicity. Head: Atraumatic, normocephalic and symmetric. Eyes: EOMs intact, no lid lag, and anicteric sclera Mouth: no lip lesions, mucus membranes moist Cardiovascular: regular rate and rhythm with normal S1S2, no murmur, positive posterior tibial pulses bilaterally, and cap refill < 2 seconds. Lungs: Respirations even, regular, and unlabored on room air. Lungs CTA bilaterally, no rhonchi, no rales, no wheezing, and no accessory muscle usage. Abdominal: soft, nontender to palpation, no guarding, no appreciable organomegaly Ext: ROM intact. No gross muscle atrophy, no edema, no contractures Neuro: Speech clear, face symmetrical and CN II-XII grossly intact with no noted focal neuro deficits Psych: Alert and oriented to person, place, time, and situation. Appropriate and pleasant affect. A total of 31 minutes of time were spent preparing this complex discharge summary. Pt was discharged on 01/20/23 at 1:43 PM. Patient was seen independently by Nurse Practitioner. This document was prepared using [employer] dictation software. Please allow for errors in repairer maintenance building while rare they do occur. Jose Miguel Jacobs NP rendered care for this patient independently, reviewed the findings and plan as documented in the note above. I did not physically speak with or examine the patient on this date. Patient Condition at Discharge: Stable Plan - Discharge Summary New Discharge Prescriptions: New ALPRAZolam [Xanax] 0.5 mg PO TID PRN #12 tablet PRN Reason: Anxiety No Action Mirena 1 implant VAGINAL [id number] polyethylene glycoL 3350 [Miralax] 8.5 gm PO DAILY PRN PRN Reason: Constipation Discharge Medication List Mirena 1 implant VAGINAL [id number] 12/22/16 [History] ALPRAZolam [Xanax] 0.5 mg PO TID PRN #12 tablet 01/20/23 [Rx] polyethylene glycoL 3350 [Miralax] 8.5 gm PO DAILY PRN 01/20/23 [History] Follow up Appointment(s)/Referral(s): Eddie Pollard MD [STAFF PHYSICIAN] - 3 Weeks (PLEASE GO TO [facility] BEFORE 4PM TODAY) Herbert Delgado MD [Primary Care Provider] - 1-2 days Patient Instructions/Handouts: Heart Palpitations (DC), Tachycardia (ED) Activity/Diet/Wound Care/Special Instructions: Activity: As tolerated. Take breaks as needed. Don't work too hard!!!! Diet: Avoid caffeinated beverages. Heart healthy and carb consistent diet. Avoid salts, or foods with hidden salts such as canned or boxed foods and frozen dinners. Extra salt makes your heart work harder and traps the fluid in your body for longer. Special Instructions: Take all of your medications as directed and remember to keep all of your doctor's appointments and follow-up as needed. You are being discharged to go directly across the street to [facility] to have Event monitor placed and hooked up. Thank you for allowing us to participate in your care, it was truly a pleasure having you for our patient!!! Discharge Disposition: HOME SELF-CARE
== END 2023-01-20 14:22 | disposition home or self-care (01) ==
LOC: EC 07:06 → 6NMEDSUR 11:07
PROVIDERS: ADMIT Family Medicine; ATTEND Family Medicine
DX: R00.2 Palpitations (principal); R00.0 Tachycardia, unspecified; F41.9 Anxiety disorder, unspecified; R73.9 Hyperglycemia, unspecified; R94.39 Abnormal result of other cardiovascular function study; Z79.3 Long term (current) use of hormonal contraceptives; Z98.891 History of uterine scar from previous surgery; Z82.49 Family history of ischemic heart disease and other diseases of the circulatory system
CPT/HCPCS: 99285; 36415; 93005; 93306; 93351; 85379; 84439; 84481; 83880; 80048; 83735; 84443; 84484; 85025; 71046; G0378

== ENCOUNTER → 2023-05-26 | Outpatient (CLI) | payer MEDICAID ==
--- NOTE | 2023-06-02 12:43 | MR ---
EXAMINATION TYPE: MR hip LT wo con DATE OF EXAM: 05/26/2023 COMPARISON: CT abdomen and pelvis December 12, 2016 HISTORY: Left hip pain with limited movement, on/off 1 yr, Standard multiplanar, multisequence MRI departmental protocol Multiplanar, multisequence images of the pelvis focusing and left hip are performed. FINDINGS: Small joint effusions are seen slightly larger in the left hip. Femoral head shapes are joselito ntained bilaterally. No serpiginous diminished T1 signal to suggest avascular necrosis is seen. Mild/ moderate axial joint space loss in both hips is identified. Mild asymmetric increased T2 signal in th e superior acetabulum is identified coronal image 12. No groin hernia or adenopathy is seen bilateral ly. Asymmetric mild left sided head and neck collar spurring. Muscle bulk is maintained bilaterally. Anteverted uterus. No free fluid in the pelvis. Small nabothian cysts in the cervix are incidentally noted. IMPRESSION: Slightly more prominent degenerative changes in the left hip as detailed above. Asymmetr ic slightly larger small left hip joint effusion is also noted.
== END | disposition home or self-care (01) ==
LOC: RADMRIMAIN 15:04
PROVIDERS: ATTEND Orthopaedic Surgery
DX: M25.452 Effusion, left hip (principal)